=== PATIENT | male | born 1990 | race Caucasian/White ===

== ENCOUNTER 2023-02-01 06:12 | Emergency (ER) | payer SELFPAY ==
[~2023-02-01] VITALS: Ht 167.6 cm; Wt 65.8 kg
--- NOTE | 2023-02-01 06:12 | NUR ---
JOSÉ LUIS LUIS. TO CHAIR C
[2023-02-01 06:25] VITALS: BP 129/82
[2023-02-01 07:03] VITALS: BP 129/82
--- NOTE | 2023-02-01 07:03 | NUR ---
Patient discharged with v/s stable. Written and verbal after care instructions given and explained. Patient verbalized understanding. Ambulatory with in custody. All questions addressed prior to discharge. Advised to follow up with PMD.
== END 2023-02-01 07:03 ==
LOC: MED 06:12
DX: S01.112A Laceration without foreign body of left eyelid and periocular area, initial encounter (principal); Z02.89 Encounter for other administrative examinations; Y04.2XXA Assault by strike against or bumped into by another person, initial encounter; Y93.89 Activity, other specified; Y92.89 Other specified places as the place of occurrence of the external cause; Y99.8 Other external cause status
CPT/HCPCS: 99283